=== PATIENT | male | born 1965 | race African-American/Black ===

== ENCOUNTER → 2020-07-16 08:25 | Outpatient (CLI) | payer BC, SELFPAY ==
--- NOTE | ~2020-07-16 | XR_ITS ---
EXAMINATION: XR hip LT min 2V DATE: 07/16/2020 08:55 INDICATION: Left hip pain. TECHNIQUE: 2 views of left hip were obtained. COMPARISON: None. FINDINGS: Bone alignment is normal. No fracture. There is advanced osteoarthritis of left hip joint i ncluding flattening of the superior aspect of the femoral head. IMPRESSION: 1. Advanced left hip osteoarthritis. Reviewed, dictated and finalized at location A. RTEBRATE PALEONTOLOGIST
== END ==
PROVIDERS: Visit Provider Nurse Practitioner Adult Health
DX: M16.12 Unilateral primary osteoarthritis, left hip (principal)
CPT/HCPCS: 73502